=== PATIENT | male | born 1975 | race Caucasian/White ===

== ENCOUNTER 2017-03-05 19:46 | Emergency (ER) | payer OTHER ==
[~2017-03-05] VITALS: Ht 175.3 cm; Wt 63.5 kg
[~2017-03-05 19:46] MED LIST: ALBUTEROL0.09 MG/A1 INH; ALPRAZOLAM1 MG PO; AMOXIL 875 MG875 MG PO; HALOPERIDOL2 MG PO; TESSALON PERLE100 MG PO; TRAZODONE50 MG PO
--- NOTE | 2017-03-05 21:12 | ED EAR COMPLAINT ---
History of Present Illness General Chief Complaint: General Adult Stated Complaint: "?RT EAR INFECTION,CHEST CONGESTION X4DAYS" Source: patient Exam Limitations: no limitations Vital Signs & Intake/Output Vital Signs & Intake/Output Vital Signs Date Time Temp Pulse Resp B/P Pulse O2 O2 Flow FiO2 Ox Delivery Rate 03/05 2125 98.2 78 18 120/74 99 Room Air 03/05 1959 98.3 74 18 117/82 100 Room Air Allergies Coded Allergies: MDX - No Known Drug Allergies - Nkd (NO KNOWN DRUG ALLERGIES - NKDA) (11/29/14) Reconcile Medications Albuterol Sulfate (Albuterol Sulfate Hfa) 0.09 MG/Actuation YADIRA 2 PUFF INH Q4- 6 PRN PRN SHORTNESS OF BREATH 90 MCG PER PUFF Alprazolam 1 MG TABLET 1 TAB PO BID MENTAL HEALTH (Reported) Amoxicillin (Amoxil 875 MG Tablets) 875 MG TAB 1 TAB PO BID bronchitis Augmentin (Augmentin 500-125 Tablet) 500 MG-125 MG TABLET 1 TAB PO BID PRN OTITIS MEDIA Benzonatate (Tessalon Perle) 100 MG SGL 1 CAP PO TID PRN COUGH Benzonatate (Tessalon Perle) 100 MG CAPSULE 1 CAP PO TID PRN COUGH Haloperidol 2 MG TAB 1 TAB PO BID MENTAL HEALTH (Reported) Meloxicam (Mobic) 15 MG TABLET 1 TAB PO DAILY PRN PAIN TRAZODONE HCL (Trazodone HCl) 50 MG TABLET 1 TAB PO QPM SLEEP (Reported) Triage Note: PT TO ED FOR R EAR PAIN X 10 DAYS. Triage Nurses Notes Reviewed? yes Onset: Gradual Duration: constant Timing: recent history Severity: moderate Severity Numbers: 5 HPI: Patient is a 42-year-old male who presents emergency with a 3 to four-day history of right-sided ear pain nonproductive cough and chronic dental pain. Patient is from [place] and temporally here for work. Patient denies any fevers chills sore throat chest pain Patient has taken Benadryl mild relief of symptoms (DORIS SINGH) Past History Travel History Traveled to [place] past 21 day No Medical History Any Pertinent Medical History? see below for history Neurological: NONE Respiratory: asthma Surgical History Surgical History: non-contributory Psychosocial History Who do you live with Other (see notes) What is your primary language Persian Tobacco Use: Never used ETOH Use: occasional use Family History Hx Contributory? No (DORIS SINGH) Review of Systems Review of Systems Constitutional: Reports: no symptoms. EENTM: Reports: see HPI, ear pain. Respiratory: Reports: see HPI, cough. Denies: short of breath. Cardiovascular: Reports: no symptoms. GI: Reports: no symptoms. Genitourinary: Reports: no symptoms. Musculoskeletal: Reports: no symptoms. Skin: Reports: no symptoms. Neurological/Psychological: Reports: no symptoms. Hematologic/Endocrine: Reports: no symptoms. Immunologic/Allergic: Reports: no symptoms. All Other Systems: Reviewed and Negative (DORIS SINGH) Physical Exam Physical Exam General Appearance: no apparent distress, comfortable Ears: Bilateral: canal normal. Comments: Well-developed well-nourished person in no acute distress HEENT: extraocular motion intact, no nystagmus. Pupils equally round and reactive to light and accommodation. Nose is atraumatic.. Pharynx normal. No swelling or edema. Left ear-normal tympanic membrane and external auditory canal Right ear normal external auditory canal noted erythema and bulging of the tympanic membrane however it is intact Neck: Supple, no lymphadenopathy, normal range of motion without pain or tenderness Back: Nontender, no CVA tenderness. Cardiovascular: Regular rate and rhythms no murmurs rubs or gallops, normal JVP Respiratory: Chest nontender. No respiratory distress.breath sounds clear to auscultation bilaterally Abdomen: Soft, nontender nondistended, no appreciable organomegaly. Normal bowel sounds. No ascites Extremity: No edema, no calf tenderness to palpation, normal and equal pulses. Neuro: Alert oriented x3, motor sensory normal, Skin: No appreciable rash on exposed skin, skin is warm and dry. Psych: Mood and affect is normal, memory and judgment is normal. (DORIS SINGH) Progress Differential Diagnoses I considered the following diagnoses in my evaluation of the patient: [Otitis media, otitis externa, mastoiditis, tympanic membrane rupture, labyrinthitis, URI pneumonia, dental caries, peritonsillar abscess,, abscess, Vj angina meningitis, sepsis] Plan of Care: Patient has concerns of right otitis media clear lungs to auscultation patient afebrile. Patient states that he lives in [place] and is only here for work in which HE was given dental follow-up and strongly advised to return to emergency room if symptoms worsen and he will comply Initial ED EKG: none (DORIS SINGH) Departure Departure Disposition: HOME OR SELF CARE Condition: Stable Clinical Impression Primary Impression: Right otitis media Secondary Impressions: Cough, Tooth ache Referrals: PATIENT HAS NO PRIMARY CARE DR (PCP/Family) Additional Instructions: As discussed please discontinue smoking, begin the prescription of Tessalon Perles for cough begin the prescription of Augmentin as directed for ear infection for the full course. Begin the prescription meloxicam for pain. Please follow up with a list of dentist for further evaluation treatment. Prescription is waiting a [facility] [place] If symptoms worsen return to emergency room. Departure Forms: Customer Survey General Discharge Information Prescriptions: Current Visit Scripts Augmentin (Augmentin 500-125 Tablet) 1 TAB PO BID PRN OTITIS MEDIA #20 TAB Benzonatate (Tessalon Perle) 1 CAP PO TID PRN COUGH #21 CAP Meloxicam (Mobic) 1 TAB PO DAILY PRN PAIN #15 TAB (DORIS SINGH) PA/PHYSICAL BIOCHEMIST Co-Sign Statement Statement: ED Attending supervision documentation- [] I saw and evaluated the patient. I have also reviewed all the pertinent lab results and diagnostic results. I agree with the findings and the plan of care as documented in the PA's/PHYSICAL BIOCHEMIST's documentation. [X] I have reviewed the ED Record and agree with the PA's/PHYSICAL BIOCHEMIST's documentation. [] Additions or exceptions (if any) to the PAs/PHYSICAL BIOCHEMIST's note and plan are summarized below: [] (FATIMAH DURANT,GUERO Dai)
[2017-03-05] MEDS ORDERED: MOBIC15 M1 PO (21:21)
[2017-03-05] MEDS ORDERED: AUGMENTIN 500-1 EACH PO (21:21)
[2017-03-05] MEDS ORDERED: TESSALON PERLE100 M1 PO (21:21)
[2017-03-05 21:25] VITALS: BP 120/74
== END 2017-03-05 21:26 ==
LOC: ERH 19:46
DX: H66.91 Otitis media, unspecified, right ear (principal); K08.89 Other specified disorders of teeth and supporting structures; R05 Cough